=== PATIENT | female | born 1975 | race African-American/Black ===

== ENCOUNTER 2018-02-16 16:46 | Emergency (ER) | payer BC ==
[~2018-02-16] VITALS: Ht 160 cm; Wt 89.8 kg
[2018-02-16 19:45] LABS: Basophils # (auto) 0 uL; Basophils % (auto) 0.4 % (0.0-2.0); Eosinophils # (auto) 0.1 uL; Nucleated Red Blood Cells % 0.1 %
[2018-02-16 19:48] LABS: Eosinophils % (auto) 0.8 % (0.0-7.0); Hematocrit 40.4 % (36.0-46.0); Hemoglobin 13.4 g/dL (12.2-16.2); Lymphocytes # (auto) 2.9 uL; Lymphocytes % (auto) 30.7 % (10.0-50.0); Mean Corpuscular Hemoglobin 27.1 pg (28.0-32.0); Mean Corpuscular Hgb Conc. 33.2 g/dL (32.0-36.0); Mean Corpuscular Volume 81.5 fL (80.0-100.0); Monocytes # (auto) 0.5 uL; Monocytes % (auto) 5.1 % (0.0-12.0); Platelet Count (auto) 245 10^3/uL (140-450); Red Blood Cells 4.96 10^6/uL (4.0-5.20); Red Cell Distribution Width 14.8 % (11.8-14.3); White Blood Cell 9.5 10^3/uL (4.4-10.8)
[2018-02-16 19:57] LABS: Albumin 3.9 g/dL (3.4-5.0); Calcium 8.9 mg/dL (8.5-10.1)
[2018-02-16 19:59] LABS: BUN/Creatinine Ratio 13.5
[2018-02-16 20:02] LABS: Bilirubin, Total 0.4 mg/dL (0.2-1.0); Total Protein 8.5 g/dL (6.4-8.2)
[2018-02-16 21:17] VITALS: BP 136/97
[2018-02-16] MEDS ORDERED: LORazepam 0.5 MG TAB PO ONE (21:45)
== END 2018-02-16 22:26 | disposition home or self-care (01) ==
LOC: ER 16:51
DX: I10 Essential (primary) hypertension (principal)
CPT/HCPCS: 36415; 80053; 84484; 85025

== ENCOUNTER → 2018-05-07 | Outpatient (CLI) | payer BC | END | disposition home or self-care (01) | LOC: LAB 15:13 | PROVIDERS: ATTEND Specialist | DX: N91.2 Amenorrhea, unspecified (principal) | CPT/HCPCS: 36415; 84702; 87205 ==

== ENCOUNTER 2018-05-09 06:56 | Emergency (ER) | payer BC ==
[~2018-05-09] VITALS: Ht 160 cm; Wt 91.2 kg
[2018-05-09 10:29] VITALS: BP 139/94
[2018-05-09] MEDS ORDERED: KETOROLAC TROMETH 60MG/2ML VIAL IM ONE (10:45)
== END 2018-05-09 11:27 | disposition home or self-care (01) ==
LOC: ER 06:56
DX: N75.1 Abscess of Bartholin's gland (principal); Z88.6 Allergy status to analgesic agent; Z88.2 Allergy status to sulfonamides
CPT/HCPCS: 96372; 99283; J1885